=== PATIENT | female | born 1940 | race Caucasian/White ===

== ENCOUNTER 2020-06-07 10:48 | Inpatient (IN) | payer MEDICARE ==
[~2020-06-07 10:48] MED LIST: Iopamidol 370 76% 50 ML VIAL FS ONE; Iopamidol-370 76% 500 ML 1 ML ONE
[2020-06-07] MEDS ORDERED: PROPOFOL 200 MG/20 ML VIAL ONE (10:52)
[2020-06-07] MEDS ORDERED: Succinylcholine Chloride 20 MG/ML 10 ml SYRINGE FS ONE (10:52)
[2020-06-07] MEDS ORDERED: Rocuronium Bromide 10 MG/ML (10ML VIAL) ONE (10:52)
[2020-06-07] MEDS ORDERED: Dexamethasone 20 MG/5 ML VIAL ONE (10:52)
[2020-06-07] MEDS ORDERED: Lidocaine 1% PF 5 ML VIAL ONE (10:52)
[2020-06-07] MEDS ORDERED: Ketorolac Tromethamine 30 MG/ML VIAL ONE (10:52)
[2020-06-07] MEDS ORDERED: Ondansetron PF 4 MG/2 ML Vial ONE (10:52)
[2020-06-07] MEDS ORDERED: Glycopyrrolate 0.2 MG/ML 5 ML SYRINGE ONE (10:52)
[2020-06-07 11:58] LABS: #Lymphocytes 0.8 thou/uL (1.20-3.40); #Monocytes 0.3 thou/uL (0.11-0.59); #Neutrophils 10.5 thou/uL (1.40-6.50); %Eosinophils 0.1 % (0.0-10.0); %Lymphocytes 6.5 % (21.0-51.0); %Monocytes 2.6 % (0.0-10.0); %Neutrophils 90.8 % (42.0-75.0); Hemoglobin 13.6 g/dL (12.0-16.0); Mean Corpuscular HGB CONC 33.1 g/dL (32.0-36.0); Mean Corpuscular Hemoglobin 30.3 pg (27.0-31.0); Mean Corpuscular Volume 91.5 fL (78.0-98.0); Mean Platelet Volume 8.7 fL (7.4-10.4); Platelet Count 229 thou/uL (130-400); RBC Distribution Width 11.8 % (11.5-14.5); Red Blood Cell (RBC) Count 4.49 mill/uL (4.20-5.40); White Blood Cell (WBC) Count 11.6 thou/uL (4.8-10.8)
[2020-06-07 12:15] LABS: ALT (SGPT) 21 U/L (8-55); AST (SGOT) 29 U/L (5-34); Albumin 3.9 g/dL (3.4-4.8); Alkaline Phosphatase 102 U/L (40-110); Anion Gap 9 mmol/L (10-20); BUN (Urea Nitrogen) 15 mg/dL (9.8-20.1); Bilirubin, Total 0.6 mg/dL (0.2-1.2); Calc. Creatinine Clearance 0 mL/min (70-130); Calcium 8.8 mg/dL (7.8-10.44); Carbon Dioxide 26 mmol/L (23-31); Chloride 100 mmol/L (98-107); Estimated GFR-MDRD Greater than 90; Globulin 3.1 g/dL (2.4-3.5); Glucose 130 mg/dL (83-110); Lipase 102 U/L (8-78); Potassium 4.2 mmol/L (3.5-5.1); Sodium 131 mmol/L (136-145)
[2020-06-07 12:36] LABS: CKMB 4.3 ng/mL (0-6.6)
[2020-06-07] MEDS ORDERED: Morphine 2 MG/ML SYRINGE ONE (12:36)
[2020-06-07 15:10] LABS: Bilirubin Negative (Negative); Blood, Urine Negative (Negative); Clarity Clear (Clear); Glucose, Urine (Dipstick) Normal (Negative); Ketone, Urine 40 mg/dL (Negative); Leukocyte 25 Leu/uL (Negative); Nitrite Negative (Negative); Protein, Urine (Dipstick) Negative (Neg-Trace); RBC/HPF 0-3 HPF (0-3); Specific Gravity, Urine 1.021 (1.002-1.036); Squamous Epithelial None Seen HPF (0-3); Urobilinogen Normal mg/dL (Less than 2); WBC/HPF 0-3 HPF (0-3)
--- NOTE | 2020-06-07 15:15 | CT ---
CT ABDOMEN AND PELVIS WITH IV CONTRAST 06/07/2020 CLINICAL INFORMATION: Abdominal pain with nausea and vomiting. COMPARISON: None. Technique: Multiple contiguous axial CT images are obtained through the abdomen and pelvis with IV contrast. Cor onal reformatted images are provided. FINDINGS: Lower Chest: There is mild linear atelectasis versus scarring at each lung base. Heart is mildly enla rged. Vessels: Vascular calcifications are present in the abdominal aorta and iliac arteries. Abdomen: Portal vein:Patent Gallbladder: Within normal limits for CT imaging. Liver: within normal limits. Spleen: within normal limits. Pancreas: within normal limits. Adrenals: Left adrenal mass measuring 2.1 cm which cannot be characterized on this post enhanced CT e xam. Nonenhanced CT abdomen is recommended for further evaluation. Right adrenal gland has a normal CT appearance. Kidneys: within normal limits. Bowel: Dilated fluid-filled loops of small bowel are seen throughout the abdomen with transition seen at the level of a left inguinal hernia which does contain a loop of small bowel. Loops of small bowel measure up to 3.3 cm in diameter. Small amount retained fecal material seen throughout the colo n, but the majority of the colon is decompressed. Colonic diverticulosis is present. Stomach is decompressed, also stomach do appear mildly thickened. Gastritis is a possibility. Appendix: Not definitely visualized on this exam due to multiple adjacent unopacified structures. Peritoneum: Small amount of intraperitoneal free fluid is seen in the abdomen and pelvis. Mesentery and Retroperitoneum: No enlarged mesenteric or retroperitoneal lymph nodes. Abdominal Wall: Left inguinal hernia containing a loop of small bowel with small fat-containing right inguinal hernia containing small amount of fluid. Pelvis: Reproductive Organs: Multiple large calcified masses are seen in a lobulated enlarged uterus related to multiple calcified uterine fibroids. Pelvis within normal limits. Bladder: Mostly decompressed. Bones: Mild degenerative changes are seen in the spine IMPRESSION: 1. Evidence of a high-grade partial small bowel obstruction secondary to a left inguinal hernia which contains a loop of small bowel in the site of transition from dilated small bowel to more normal caliber loops of small bowel. 2. Left adrenal nodule which cannot be further characterized on this exam. Follow-up nonemergent CT a bdomen without IV contrast is recommended for further characterization. 3. Small amount of ascites. 4. Enlarged uterus with multiple calcified uterine fibroids. 5. Mild cardiomegaly. 6. Suggested mild thickening gastric melara which can be seen with gastritis. Endoscopy or upper GI be helpful for further evaluation. 7. Above findings discussed Dr. Apodaca in the emergency department on 06/07/2020 at 1512 hours.
[2020-06-07] MEDS ORDERED: cefOXitin 2 GM in Sodium Chloride 0.9% 100 ML IVPB SCH (17:45)
--- NOTE | 2020-06-07 18:12 | HP ---
CHIEF COMPLAINT: Abdominal pain. HISTORY OF PRESENT ILLNESS: Ms. Velazquez is a 79-year-old woman, who presented to the emergency room with left lower quadrant abdominal pain radiating to the right lower quadrant and down into the labial area since last night around 11:30. She was unable to sleep and was nauseated all night and then began to throw up. She threw up everything that she had eaten the previous evening. There was no blood in the emesis. She denies any fevers or chills. The abdominal pain is dull and constant in nature. She was evaluated in the emergency room and a CT scan of the abdomen and pelvis revealed a bowel obstruction with a transition point at a left inguinal hernia. She also has a small right inguinal hernia, which contains fat and a small amount of fluid. She was unaware that these hernias were present and she does not have any pain in that area, although she is tender to palpation on the left. PAST MEDICAL HISTORY: Hypothyroidism. PAST SURGICAL HISTORY: Removal of impacted wisdom teeth and as a young woman. ALLERGIES: NO KNOWN DRUG ALLERGIES. OUTPATIENT MEDICATIONS: Thyroid medication. She was unable to give me the dosage, but according to the ER record, she is on [place] Thyroid 15 mg daily. REVIEW OF SYSTEMS: Ten system review of systems is negative except per HPI. No respiratory symptoms. PHYSICAL EXAMINATION: VITAL SIGNS: The patient is afebrile with normal heart rate and blood pressure and room air sat. GENERAL: Reveals a healthy-appearing 79-year-old woman, in no acute distress. She is not flushed or toxic in appearance. She is not jaundiced or icteric. HEENT: Unremarkable. NECK: Supple without lymphadenopathy or thyroid nodules. HEART: Regular in its rate and rhythm without murmurs, rubs, or gallops. LUNGS: Clear to auscultation bilaterally. ABDOMEN: Soft, slightly distended, and mildly tender to palpation in the left lower quadrant greater than right lower quadrant. She has a tender incarcerated left hernia, which actually feels like a femoral hernia on examination. There is not any bulge extending up towards the internal ring. She has a nontender incarcerated right hernia, which also feels like a femoral hernia on exam. EXTREMITIES: Warm and well perfused without edema. NEURO: No focal deficits. PSYCHIATRIC: Alert, oriented, and appropriate. LABORATORY DATA: White count is mildly elevated at 11.6, hematocrit 41, platelets 229. BUN and creatinine are 15 and 0.55, sodium 131. Other electrolytes are normal. Troponin is 0.2, which is mildly elevated in the indeterminate range. Lipase is 102. EKG looks normal. IMAGING STUDIES: CT images are reviewed and I agree with the written report. She also had an incidental note of an adrenal mass on the left, which was unable to be characterized and a followup noncontrast CT was recommended. ASSESSMENT: Incarcerated obstructing left femoral hernia, which requires urgent repair. If the bowel is compromised, she may require laparoscopy or laparotomy and bowel resection. She also has a right femoral hernia, which could potentially cause problems in the future and I have recommended repair of this under the same anesthesia. She is agreeable to this. She understands that repair will be performed with mesh if the bowel is viable and with suture only if the bowel is compromised. If the bowel is compromised, I would defer repair of the right hernia until a later date when it can be repaired with mesh. Inherent risks of the surgery were discussed. These include, but are not limited to bleeding, infection, risks of anesthesia, damage to nearby structures including bowel and blood vessels, hernia recurrence especially if mesh is not used, anastomotic leak if bowel resection is necessary. She understands and accepts these risks and wishes to proceed. All of her questions were answered. Job ID: [id number] [facility]
[2020-06-07] MEDS ORDERED: Sodium Chloride 0.9% 1,000 ML IV SCH (18:45)
[2020-06-07] MEDS ORDERED: Fentanyl 100 MCG/2 ML VIAL ONE (19:00)
[2020-06-07] MEDS ORDERED: Bupivacaine 0.25% HCL 30 ML VIAL ONE (19:19)
[2020-06-07] MEDS ORDERED: Lidocaine 1% w/Epinephrine 1:100K 20 ML VIAL ONE (19:19)
[2020-06-07] MEDS ORDERED: Ondansetron HCl/PF 4 MG/2 ML Vial IVP PRN (21:31)
[2020-06-07] MEDS ORDERED: Morphine 2 MG/ML VIAL SLOW IVP PRN (22:48)
[2020-06-07] MEDS ORDERED: traMADol HCl 50 MG TAB PO PRN ×2 (22:49)
[2020-06-07] MEDS ORDERED: Acetaminophen 325 MG TAB PO PRN ×2 (22:50)
[2020-06-07] MEDS ORDERED: HYDROcodone/Acetaminophen 5/325 mg Tablet PO PRN (22:50)
[2020-06-07] MEDS ORDERED: Ibuprofen 200 MG TAB PO PRN (22:51)
[2020-06-07] MEDS ORDERED: Ibuprofen 600 MG TAB PO PRN (22:51)
[2020-06-07] MEDS ORDERED: Ondansetron PF 4 MG/2 ML Vial IVP PRN (22:52)
[2020-06-07] MEDS: Sodium Chloride 0.9% 1,000 ML IV SCH (23:01)
[2020-06-07 23:51] LABS: Troponin I 0.265 ng/mL (< 0.028)
[2020-06-08 00:59] VITALS: BMI 21.3
[2020-06-08] MEDS ORDERED: Aspirin 325 MG TAB PO SCH (01:30)
--- NOTE | 2020-06-08 01:56 | CON ---
DATE OF CONSULTATION: 06/08/2020 TIME OF ASSESSMENT: 0030 REASON FOR CONSULTATION: Indeterminate troponin. HISTORY OF PRESENT STAY: Ms. Velazquez is a 79-year-old woman, who presented to the emergency department today with abdominal pain. She underwent CT imaging that demonstrated a bowel obstruction with transition point at a left inguinal hernia. There was concern for incarceration, therefore underwent urgent repair by Dr. Doan. Laboratory studies obtained preoperatively included a troponin which was indeterminate at 0.202. Repeat troponin done at 2315 was slightly further elevated at 0.265. Therefore, Dr. Doan has placed orders to transfer patient to the telemetry floor for cardiac monitoring and has requested us to evaluate the patient for ACS rule out. The patient states she has not experienced any chest pain prior to surgery or since surgery. Denies having any cardiac history. Has never undergone any catheterization or stress test in the past. She currently has no abdominal pain since coming back from surgery. She is without any complaints except for feeling very sleepy. Reports history of hypothyroidism only. In the emergency department, she underwent a baseline EKG which showed normal sinus rhythm with a heart rate of 72. ST segments and T-waves were unremarkable. She had laboratory studies done that showed a mildly elevated white count of 11.6 and neutrophils of 90.8%. Sodium was 131, potassium 4.2, BUN 15, creatinine 0.55, GFR greater than 90, glucose 130. LFTs unremarkable. Lipase mildly elevated at 102. As mentioned, initial troponin 0.202. PAST MEDICAL HISTORY: Hypothyroidism. PAST SURGICAL HISTORY: 1. Removal of impacted wisdom teeth. 2. . 3. Status post surgery for incarcerated left inguinal hernia/bowel obstruction by Dr. Doan 06/08/2020. SOCIAL HISTORY: The patient is fully independent. Denies any tobacco use, alcohol consumption, or illicit drug use. FAMILY HISTORY: Noncontributory. ALLERGIES: NO KNOWN DRUG ALLERGIES. CURRENT MEDICATIONS: [place] Thyroid 15 mg daily. PHYSICAL EXAMINATION: GENERAL: The patient is resting comfortably, drowsy but easily awoken. She is in no acute distress. VITAL SIGNS: Temperature 97.4, pulse 67, respirations 18, O2 saturation 96% on room air, blood pressure 123/65. HEENT: Normocephalic and atraumatic. Pupils are equal, round, and reactive to light. Sclerae anicteric. Oropharynx is clear. NECK: Supple. LUNGS: Clear bilaterally without any wheezes, rales, or rhonchi. CARDIAC: Regular rate and rhythm. ABDOMEN: Soft. Some general distention. Nontender. No guarding or rigidity. Has small incisions from laparoscopic surgery. EXTREMITIES: No lower leg swelling or edema. Mechanical SCDs in place. SKIN: Warm and dry. NEUROLOGIC: Alert and oriented x3. No neuro deficits on exam. The patient is sleepy but easily awoken. INVESTIGATIONS: As mentioned above in HPI. IMPRESSION AND PLAN: Ms. Velazquez is a very pleasant 79-year-old woman, who presented with abdominal pain, who is status post surgery for bowel obstruction/ left inguinal incarcerated hernia repair done by Dr. Doan referred for the followin. ACS rule out. Denies any chest pain at all. Had indeterminate trop. Will be transferred to [facility] for cardiac monitoring. Hx of thyroid disease, no CAD or previous LA. Repeat EKG to assess for any dynamic changes in comparison to initial EKG done preoperatively. We will continue to trend troponin. Add BNP and chest x- ray. Further workup as per Day Team. Check TSH with morning labs and I have added magnesium level. 2. Gastrointestinal prophylaxis with famotidine. 3. Deep vein thrombosis prophylaxis with mechanical SCDs. Given surgery, pharmacoprophylaxis is contraindicated. 4. S/p incarcerated hernia repair. As per Dr. Doan. Receiving analegia and abx. 5. Code status is full. Surrogate decision maker is her daughter, Jeannie Velazquez. Case discussed with attending who agrees with plan of care as described above. Thank you for this consultation. We will continue to follow the patient. Job ID: [id number] [facility]
[2020-06-08] MEDS: Sodium Chloride 0.9% 1,000 ML IV SCH ×4 (02:02→23:12)
[2020-06-08 04:18] LABS: #Lymphocytes 0.7 thou/uL (1.20-3.40); #Monocytes 0.3 thou/uL (0.11-0.59); #Neutrophils 10.2 thou/uL (1.40-6.50); %Eosinophils 0.1 % (0.0-10.0); %Lymphocytes 5.9 % (21.0-51.0); Hemoglobin 12.2 g/dL (12.0-16.0); Mean Corpuscular HGB CONC 32.1 g/dL (32.0-36.0); Mean Corpuscular Hemoglobin 29.2 pg (27.0-31.0); Mean Platelet Volume 8.8 fL (7.4-10.4); Platelet Count 217 thou/uL (130-400); RBC Distribution Width 11.8 % (11.5-14.5); Red Blood Cell (RBC) Count 4.17 mill/uL (4.20-5.40); White Blood Cell (WBC) Count 11.3 thou/uL (4.8-10.8)
[2020-06-08 05:13] LABS: Anion Gap 9 mmol/L (10-20); BUN (Urea Nitrogen) 12 mg/dL (9.8-20.1); Calc. Creatinine Clearance 78 mL/min (70-130); Calcium 8.4 mg/dL (7.8-10.44); Carbon Dioxide 27 mmol/L (23-31); Cardiac Risk 3.3 (Less than 4.5); Chloride 102 mmol/L (98-107); Cholesterol 183 mg/dl (< 200 Desired); Estimated GFR-MDRD Greater than 90; Glucose 128 mg/dL (83-110); HDL Cholesterol 55 mg/dL (>60 Neg Risk); LDL Cholesterol, Calculated 117 mg/dL; Sodium 134 mmol/L (136-145); Triglycerides 57 mg/dL (Less than 150)
[2020-06-08] MEDS: cefOXitin Sodium/Dextrose,Iso 2 GM in Premix Bag 1 BAG IVPB SCH ×2 (05:20→13:18)
[2020-06-08 06:05] LABS: CKMB 7.5 ng/mL (0-6.6)
--- NOTE | 2020-06-08 07:55 | RAD ---
XR Chest Pa Lat STANDARD HISTORY: Acute coronary syndrome COMPARISON: None FINDINGS: The heart size is normal. There are changes of COPD without focal areas of consolidation, p neumothorax or large pleural effusions. Small bilateral pleural effusions may be present posteriorly.
[2020-06-08 10:01] LABS: CKMB 7.4 ng/mL (0-6.6); Critical Call CKMB RESULT DECREASING
--- NOTE | 2020-06-08 10:30 | PDOC.OP ---
Operative Note - Operative Note Operative Note: PROCEDURE: Bilateral femoral hernia repairs with mesh SURGEON: Iftikhar Doan M.D. DATE: 06/07/2020 PREOPERATIVE DIAGNOSIS: Incarcerated right femoral hernia with bowel obstruction , left femoral hernia POSTOPERATIVE DIAGNOSIS: Incarcerated right femoral hernia with bowel obstruction, left femoral hernia HISTORY: Patient who presented to the hospital with abdominal pain nausea and vomiting. She was discovered to have bowel obstruction with a transition point at an incarcerated left femoral hernia. Recommendation was made to proceed with operative repair. She was also incidentally noted to have a moderate right femoral hernia for which repair under the same anesthesia was recommended. FINDINGS: Incarcerated left femoral hernia with slightly congested but completely viable bowel in the hernia sac. Right femoral hernia containing fluid only. PROCEDURE IN DETAIL: After informed consent was obtained and appropriate preoperative antibiotics administered the patient was taken to the operating where she was placed in the supine position and general endotracheal anesthesia was administered. She was prepped and draped in standard sterile fashion including the entire abdominal cavity into the operative field. Local anesthesia was infused to the skin and subcutaneous tissues overlying the left femoral hernia and dissection was carried down to the hernia sac which was opened under direct vision. This contained a loop of small intestine which was incarcerated but viable. The bowel was not thickened or edematous or hemorrhagic and was slightly congested but otherwise normal in appearance. Due to the tight neck at the femoral hernia the bowel was unable to be reduced until the hernia opening was enlarged slightly following which the bowel was easily reduced into the abdominal cavity. The hernia sac was resected and the peritoneal defect closed with a running 3-0 Monocryl suture. The stump was allowed to retract into the abdominal cavity. A PerFix plug was obtained and trimmed to the proper size and placed into the hernia defect and secured to the surrounding tissues. The wound was irrigated and additional local anesthesia infused for postoperative pain control. Hemostasis was verified and the subcutaneous tissues were closed in layers with 3-0 Monocryl suture. The skin incision was closed with a running 4-0 subcuticular suture and attention turned to the right femoral hernia. This was repaired in identical manner. The patient had a moderate sized hernia sac on the right side but there was only peritoneal fluid in the sac. Dermabond was placed to both incisions and the patient was extubated and taken to recovery in good condition. Estimated blood loss was minimal. There were no complications. Specimens are bilateral femoral hernia sacs.
--- NOTE | 2020-06-08 12:08 | PDOC.HOSPP ---
- Subjective Encounter Date: 06/08/20 Subjective: pt seen and examined at bedside, denies any chest pain or sob , no fever or chill , abd pain is improving no new complains today - Objective Vital Signs & Weight: Vital Signs (12 hours) Temp Pulse Resp BP Pulse Ox 06/08/20 11:05 94 L 06/08/20 11:00 97.5 F L 68 12 130/65 96 06/08/20 07:56 98.0 F 61 20 134/63 94 L 06/08/20 05:25 97.6 F 76 13 112/56 L 95 06/08/20 01:25 97.2 F L 66 18 119/61 95 06/08/20 00:21 97.4 F L 69 18 123/65 96 Weight Weight 132 lb I&O: 06/07/20 06/08/20 06/09/20 06:59 06:59 06:59 Intake Total 570 Balance 570 Result Diagrams: 06/08/20 04:07 06/08/20 04:07 Additional Labs: Laboratory Last Values WBC 11.3 thou/uL (4.8-10.8) H 06/08/20 04:07 RBC 4.17 mill/uL (4.20-5.40) L 06/08/20 04:07 Hgb 12.2 g/dL (12.0-16.0) 06/08/20 04:07 Hct 37.9 % (36.0-47.0) 06/08/20 04:07 MCV 91.0 fL (78.0-98.0) 06/08/20 04:07 MCH 29.2 pg (27.0-31.0) 06/08/20 04:07 MCHC 32.1 g/dL (32.0-36.0) 06/08/20 04:07 RDW 11.8 % (11.5-14.5) 06/08/20 04:07 Plt Count 217 thou/uL (130-400) 06/08/20 04:07 MPV 8.8 fL (7.4-10.4) 06/08/20 04:07 Neutrophils % 91.0 % (42.0-75.0) H 06/08/20 04:07 Lymphocytes % 5.9 % (21.0-51.0) L 06/08/20 04:07 Monocytes % 3.0 % (0.0-10.0) 06/08/20 04:07 Eosinophils % 0.1 % (0.0-10.0) 06/08/20 04:07 Basophils % 0.0 % (0.0-1.0) 06/08/20 04:07 Neutrophils # 10.2 thou/uL (1.40-6.50) H 06/08/20 04:07 Lymphocytes # 0.7 thou/uL (1.20-3.40) L 06/08/20 04:07 Monocytes # 0.3 thou/uL (0.11-0.59) 06/08/20 04:07 Eosinophils # 0.0 thou/uL (0.0-0.7) 06/08/20 04:07 Basophils # 0.0 thou/uL (0.0-0.2) 06/08/20 04:07 Sodium 134 mmol/L (136-145) L 06/08/20 04:07 Potassium 4.0 mmol/L (3.5-5.1) 06/08/20 04:07 Chloride 102 mmol/L (98-107) 06/08/20 04:07 Carbon Dioxide 27 mmol/L (23-31) 06/08/20 04:07 Anion Gap 9 mmol/L (10-20) L 06/08/20 04:07 BUN 12 mg/dL (9.8-20.1) 06/08/20 04:07 Creatinine 0.57 mg/dL (0.6-1.1) L 06/08/20 04:07 Estimated GFR (MDRD) Greater than 90 06/08/20 04:07 Glucose 128 mg/dL (83-110) H 06/08/20 04:07 Calcium 8.4 mg/dL (7.8-10.44) 06/08/20 04:07 Magnesium 1.8 mg/dL (1.6-2.6) 06/08/20 04:07 Total Bilirubin 0.6 mg/dL (0.2-1.2) 06/07/20 11:31 AST 29 U/L (5-34) 06/07/20 11:31 ALT 21 U/L (8-55) 06/07/20 11:31 Alkaline Phosphatase 102 U/L (40-110) 06/07/20 11:31 CK-MB (CK-2) 7.4 ng/mL (0-6.6) H* 06/08/20 08:14 Troponin I 0.180 ng/mL (< 0.028) H 06/08/20 08:14 B-Natriuretic Peptide 315.7 pg/mL (0-100) H 06/08/20 04:07 Serum Total Protein 7.0 g/dL (6.0-8.3) 06/07/20 11:31 Albumin 3.9 g/dL (3.4-4.8) 06/07/20 11:31 Globulin 3.1 g/dL (2.4-3.5) 06/07/20 11:31 Albumin/Globulin Ratio 1.3 g/dL (1.2-2.2) 06/07/20 11:31 Triglycerides 57 mg/dL (Less than 150) 06/08/20 04:07 Cholesterol 183 mg/dl (< 200 Desired) 06/08/20 04:07 LDL Cholesterol, Calc 117 mg/dL 06/08/20 04:07 HDL Cholesterol 55 mg/dL (>60 Neg Risk) 06/08/20 04:07 Heart Disease Risk Ratio 3.3 (Less than 4.5) 06/08/20 04:07 Lipase 102 U/L (8-78) H 06/07/20 11:31 TSH 3rd Generation 0.2764 uIU/mL (0.35-4.94) L 06/08/20 04:07 Urine Color Light-Yellow (Yellow) 06/07/20 14:51 Urine Clarity Clear (Clear) 06/07/20 14:51 Urine pH 6.0 (5.0-9.0) 06/07/20 14:51 Ur Specific [place] 1.021 (1.002-1.036) 06/07/20 14:51 Urine Protein Negative mg/dL (Neg-Trace) 06/07/20 14:51 Urine Glucose (UA) Normal mg/dL (Negative) 06/07/20 14:51 Urine Ketones 40 mg/dL (Negative) A 06/07/20 14:51 Urine Blood Negative (Negative) 06/07/20 14:51 Urine Nitrite Negative (Negative) 06/07/20 14:51 Urine Bilirubin Negative (Negative) 06/07/20 14:51 Urine Urobilinogen Normal mg/dL (Less than 2) 06/07/20 14:51 Ur Leukocyte Esterase 25 Vincent/uL (Negative) A 06/07/20 14:51 Urine RBC 0-3 HPF (0-3) 06/07/20 14:51 Urine WBC 0-3 HPF (0-3) 06/07/20 14:51 Ur Squamous Epith Cells None Seen HPF (0-3) 06/07/20 14:51 Urine Bacteria Not Reportable 06/07/20 14:51 Hospitalist ROS - Medication Medications: Active Medications Generic Name Dose Route Start Last Admin Trade Name Freq PRN Reason Stop Dose Admin Sodium Chloride 1,000 mls @ 100 mls/hr 06/07/20 23:00 06/08/20 08:28 Normal Saline 0.9% IV 1,000 mls .Q10H REID Administration Cefoxitin Sodium/Dextrose 2 gm 50 mls @ 50 mls/hr 06/08/20 04:00 06/08/20 05: 20 / Device IVPB 06/08/20 12:59 50 mls 0400,1200,2000 REID Administration Sodium Chloride 10 ml 06/08/20 09:00 06/08/20 08:27 Flush - Normal Saline IVF 10 ml Q12HR REID Administration - Exam General Appearance: NAD, awake alert Eye: PERRL ENT: normocephalic atraumatic Neck: supple Heart: RRR Respiratory: CTAB Gastrointestinal: distended Psychiatric: normal affect Hosp A/P (1) Elevated troponin Code(s): R79.89 - OTHER SPECIFIED ABNORMAL FINDINGS OF BLOOD CHEMISTRY Status : Acute (2) S/P hernia repair Code(s): Z98.890 - OTHER SPECIFIED POSTPROCEDURAL STATES; Z87.19 - PERSONAL HISTORY OF OTHER DISEASES OF THE DIGESTIVE SYSTEM Status: Acute - Plan indetrmined trop possible due to demand ischemia pt cont to deny cp no significant rise in trop , will send for echo and pt will need out pt stress test will start pt on daily asa 81 and lipitor 20mg will check a1c cont post up care as per general surgery monitor labs and replace elctrolytes dvt ppx will cont to follow during hospital stay pt full code plan discussed with pt
--- NOTE | 2020-06-08 12:42 | EKG ---
Test Reason : STAT Blood Pressure : / mmHG Vent. Rate : 067 BPM Atrial Rate : 067 BPM P-R Int : 160 ms QRS Dur : 080 ms QT Int : 476 ms P-R-T Axes : 060 047 080 degrees QTc Int : 502 ms Normal sinus rhythm Prolonged QT Abnormal ECG When compared with ECG of 07-JUN-2020 11:46, (Unconfirmed) No significant change was found Confirmed by MARLON SWEENEY, SGunnar ([id number]) on 06/08/2020 12:41:33 PM Referred By: Confirmed By:DR. Ladan MASON MD
[2020-06-08 12:48] LABS: Anion Gap 13 mmol/L (10-20); BUN (Urea Nitrogen) 11 mg/dL (9.8-20.1); Calc. Creatinine Clearance 75 mL/min (70-130); Calcium 8.6 mg/dL (7.8-10.44); Carbon Dioxide 22 mmol/L (23-31); Chloride 104 mmol/L (98-107); Estimated GFR-MDRD Greater than 90; Glucose 101 mg/dL (83-110); Sodium 135 mmol/L (136-145)
[2020-06-08 13:22] LABS: #Lymphocytes 1.5 thou/uL (1.20-3.40); #Monocytes 0.9 thou/uL (0.11-0.59); #Neutrophils 9.4 thou/uL (1.40-6.50); %Basophils 0.2 % (0.0-1.0); %Eosinophils 0.2 % (0.0-10.0); %Lymphocytes 12.4 % (21.0-51.0); %Monocytes 7.9 % (0.0-10.0); %Neutrophils 79.3 % (42.0-75.0); Hemoglobin 12.4 g/dL (12.0-16.0); Mean Corpuscular Hemoglobin 30.7 pg (27.0-31.0); Mean Platelet Volume 8.6 fL (7.4-10.4); Platelet Count 222 thou/uL (130-400); Red Blood Cell (RBC) Count 4.04 mill/uL (4.20-5.40); White Blood Cell (WBC) Count 11.9 thou/uL (4.8-10.8)
[2020-06-08] MEDS ORDERED: Atorvastatin Calcium 20 MG TAB PO SCH (21:00)
[2020-06-09 04:32] LABS: Hemoglobin A1c 5.4 % (4.0-6.0)
[2020-06-09] MEDS: Sodium Chloride 0.9% 1,000 ML IV SCH (08:21)
[2020-06-09] MEDS ORDERED: Aspirin 81 mg Enteric Coated Tablet PO SCH ×2 (09:00)
[2020-06-09 16:15] VITALS: BP 151/69; TEMP 97.8
--- NOTE | 2020-06-10 14:11 | PDOC.HOSPP ---
- Subjective Encounter Date: 06/09/20 Subjective: pt seen examined pain under control no fever or chills tolerating po intake - Objective Vital Signs & Weight: Weight Weight 132 lb I&O: 06/09/20 06/10/20 06/11/20 06:59 06:59 06:59 Intake Total 2780 Output Total 2150 Balance 630 Result Diagrams: 06/08/20 13:12 06/08/20 08:14 - Exam Eye: PERRL ENT: normocephalic atraumatic Neck: supple Heart: RRR Respiratory: CTAB Gastrointestinal: soft, non-tender Neurological: cranial nerve grossly intact Psychiatric: normal affect Hosp A/P (1) Elevated troponin Code(s): R79.89 - OTHER SPECIFIED ABNORMAL FINDINGS OF BLOOD CHEMISTRY Status : Acute (2) S/P hernia repair Code(s): Z98.890 - OTHER SPECIFIED POSTPROCEDURAL STATES; Z87.19 - PERSONAL HISTORY OF OTHER DISEASES OF THE DIGESTIVE SYSTEM Status: Acute - Plan indetrmined trop possible due to demand ischemia pt cont to deny cp echo wnl no significant rise in trop , pt would rather outpt stress test than to do one inpt will start pt on daily asa 81 and lipitor 20mg will check a1c cont post up care as per general surgery monitor labs and replace elctrolytes dvt ppx pt will be dc today by sx recs pt full code plan discussed with pt
== END 2020-06-09 20:25 | disposition home or self-care (01) | DRG 351 ==
LOC: ERS 10:48 → SDC 19:44 → SURG A 23:08 → 2NO 06-08 01:44
PROVIDERS: ADMIT Surgery; ATTEND Surgery
PROC: 0YU Anatomical Regions, Lower Extremities, Supplement (ICD-10-PCS; principal; 2020-06-07)
DX: K41.00 Bilateral femoral hernia, with obstruction, without gangrene, not specified as recurrent (principal); I24.8 Other forms of acute ischemic heart disease; E03.9 Hypothyroidism, unspecified
CPT/HCPCS: 36415; 71046; 74177; 80048; 80053; 80061; 81003; 81015; 82553; 83036; 83690; 83735; 83880; 84443; 84484; 85025; 88302; 93005; 93010; 93306; 94760; C1781; J0694; J1100; J1885; J2001; J2270; J2405; J2704; J3010; Q9967; S0020